=== PATIENT | female | born 1945 | race Caucasian/White ===

== ENCOUNTER → 2021-01-23 | Outpatient (CLI) | payer MEDICARE, OTHER ==
[~2021-01-23] MED LIST: ACET1TAB52 PO; ASCO1TAB4 PO; ASPI81TA45 PO; ATOR-2 PO; B CO1TAB14 PO; BIOT5TAB PO; CHOL10003 PO; CODE1CAP2 PO; CYAN50009 PO; Cranberry PO; FLUO40CA2 PO; LIRA0.6P2 INJ; MAGN400T9 PO; MELA10TA PO; MULT-658 PO; OMEP20TA62 PO; SPIR25TA5 PO; TELM40TA PO; UBID100C24 PO; VIT1TABL32 PO; ZOLP10TA PO; Zinc PO; [UNRECOGNIZED DRUG - OTHER] PO; colon health PO
== END | disposition home or self-care (01) ==
LOC: STAR 11:31
PROVIDERS: ATTEND Orthopaedic Surgery
DX: Z20.822 Contact with and (suspected) exposure to COVID-19 (principal); M75.122 Complete rotator cuff tear or rupture of left shoulder, not specified as traumatic
CPT/HCPCS: U0003; U0005

== ENCOUNTER 2021-01-28 12:49 | Day surgery (SDC) | payer MEDICARE, OTHER ==
[~2021-01-28] VITALS: Ht 160 cm; Wt 106.8 kg
[~2021-01-28 12:49] MED LIST changes: +BUPIVACAINE LIPOSOME/PF 10ML INFIL ONE; +CEFAZOLIN 1,000 MG ONE; +CLINDAMYCIN 150 MG/ML, 6ML ONE; +DEXAMETHASONE 4 MG/ML, 1ML ONE; +GLYCOPYRROLATE 0.2MG/1ML, 5ML ONE; +NEOSTIGMINE 1 MG/ML, 10ML ONE; +ONDANSETRON 2MG/ML, 2ML ONE; +PROPOFOL 10 MG/ML, 20ML ONE; +ROCURONIUM 10MG/ML,5ML ONE
[2021-01-28] MEDS ORDERED: LACTATED RINGERS 1,000 ML IV SCH (13:30)
[2021-01-28] MEDS ORDERED: CHLORHEXIDINE 15 ML UDC PO ONE (13:30)
[2021-01-28 13:32] VITALS: BP 135/78
[2021-01-28] MEDS ORDERED: ZOLPIDEM 10MG TABLET PO PRN (15:00)
[2021-01-28] MEDS ORDERED: FENTANYL PF 250 MCG/5ML ONE (15:20)
[2021-01-28] MEDS ORDERED: PROMETHAZINE 25 MG/ML, 1ML IVPush PRN (17:30)
[2021-01-28] MEDS ORDERED: ACETAMINOPHEN 325 MG TABLET PO PRN (17:30)
[2021-01-28] MEDS ORDERED: OXYcodone 5 MG/5 ML ORAL.SOL UDC PO PRN (17:30)
[2021-01-28] MEDS ORDERED: MEPERIDINE/PF 25MG/0.5ML IVPush PRN (17:30)
[2021-01-28] MEDS ORDERED: HYDROmorphone 1 MG/ML, 1ML INJ IVPush PRN (17:30)
[2021-01-28] MEDS ORDERED: EPHEDRINE 50 MG/ML, 1ML IVPush PRN (17:30)
[2021-01-28] MEDS ORDERED: FENTANYL PF 100 MCG/2ML IV PRN (17:30)
[2021-01-28] MEDS ORDERED: LORazepam 2 MG/ML, 1ML IVPush PRN (17:30)
[2021-01-28] MEDS ORDERED: LABETALOL 5MG/ML, 20ML IV PRN (17:30)
[2021-01-28] MEDS ORDERED: ONDANSETRON 2MG/ML, 2ML IVPush PRN (17:30)
[2021-01-28] MEDS ORDERED: hydrALAzine 20 MG/ML, 1ML IV PRN (17:30)
[2021-01-28] MEDS ORDERED: METHOCARBAMOL 1,000 MG in DEXTROSE 5% 100 ML IV PRN (18:30)
[2021-01-28] MEDS ORDERED: TEMPLATE NON-FORMULARY MED. (Magnesium Oxide** 400 MG) PO SCH (21:00)
[2021-01-28] MEDS ORDERED: CHOLECALCIFEROL 1,000 UNIT TABLET PO SCH (21:00)
[2021-01-28] MEDS ORDERED: ATORVASTATIN 80 MG TABLET PO SCH (21:00)
[2021-01-28] MEDS ORDERED: MELATONIN 10 MG PO SCH (21:00)
[2021-01-28] MEDS ORDERED: ASPIRIN 81 MG TABLET EC PO SCH (21:00)
[2021-01-29] MEDS ORDERED: LIRAGLUTIDE 0.6 MG INJ SCH (09:00)
[2021-01-29] MEDS ORDERED: SPIRONOLACTONE 25 MG TABLET PO SCH (09:00)
[2021-01-29] MEDS ORDERED: TEMPLATE NON-FORMULARY MED. (Omeprazole Magnesium** (Prilosec Otc**) 20 MG) PO SCH (09:00)
[2021-01-29] MEDS ORDERED: TEMPLATE NON-FORMULARY MED. (Fluoxetine Hcl** 40 MG) PO SCH (09:00)
[2021-01-29] MEDS ORDERED: TELMISARTAN 40 MG PO SCH (09:00)
[2021-01-29] MEDS ORDERED: SUCCINYLCHOLINE 20 MG/ML, 10ML ONE (15:20)
[2021-01-29] MEDS ORDERED: ONDANSETRON 2MG/ML, 2ML ONE (15:20)
[2021-01-29] MEDS ORDERED: NEOSTIGMINE 1 MG/ML, 10ML ONE (15:20)
[2021-01-29] MEDS ORDERED: DEXAMETHASONE 4 MG/ML, 1ML ONE (15:20)
[2021-01-29] MEDS ORDERED: GLYCOPYRROLATE 0.2MG/1ML, 5ML ONE (15:20)
[2021-01-29] MEDS ORDERED: ROCURONIUM 10MG/ML,5ML ONE (15:20)
[2021-01-29] MEDS ORDERED: CEFAZOLIN 1,000 MG ONE (15:20)
[2021-01-29] MEDS ORDERED: PROPOFOL 10 MG/ML, 20ML ONE (15:20)
== END 2021-01-28 18:10 | disposition home or self-care (01) ==
LOC: OUT 12:49
PROVIDERS: ATTEND Orthopaedic Surgery
DX: M19.012 Primary osteoarthritis, left shoulder (principal); M75.112 Incomplete rotator cuff tear or rupture of left shoulder, not specified as traumatic; M75.02 Adhesive capsulitis of left shoulder; M65.812 Other synovitis and tenosynovitis, left shoulder; I10 Essential (primary) hypertension; E11.9 Type 2 diabetes mellitus without complications; E66.9 Obesity, unspecified; Z68.41 Body mass index [BMI] 40.0-44.9, adult; Z79.82 Long term (current) use of aspirin; Z79.891 Long term (current) use of opiate analgesic; Z79.899 Other long term (current) drug therapy; Z88.1 Allergy status to other antibiotic agents; Z88.8 Allergy status to other drugs, medicaments and biological substances; Z98.890 Other specified postprocedural states
CPT/HCPCS: 23472; 64415; 82962; C1713; C1769; C1776; J0690; J1100; J2405; J2704; J2710; J3010; J7120; J0330